=== PATIENT | female | born 1975 | race Caucasian/White ===

== ENCOUNTER 2016-08-06 22:43 | Emergency (ER) | payer BC ==
[~2016-08-06] VITALS: Ht 170.2 cm; Wt 71.4 kg
[~2016-08-06 22:43] MED LIST: CEPH500C3 PO; HYDR50TA94 PO; MEDR4PAK3 PO
[2016-08-06 22:47] VITALS: BP 128/88; PULSE 73; RESP 18; TEMP 98.8; O2SAT 98
--- NOTE | 2016-08-06 23:13 | PD ---
HPI Chief Complaint: rash Time Seen by Provider: 23:08 Travel History International Travel<30 days: No Contact w/Intl Traveler<30days: No Traveled to known affect area: No History of Present Illness HPI 41-year-old female presents to the emergency department for complaint of non- pruritic rash noted to the volar aspects of both lower forearms. Patient reports that on Tuesday she was working in her yard resting her forearms on concrete surface as she was trying to detach a broken sprinkler head and was being exposed to claims water. Patient noted a small abrasion to her right palm shows stopped exposing her skin and wound to the contaminated water and immediately washed her hands and forearms vigorously. Patient states on she noted a non-pruritic erythematous pinpoint rash to the volar aspect of both distal forearms. Patient states areas did not have associated vesicles pustules there were no petechia or purpura areas were not confluent. Erythematous base is noted. No itching was noted. No ascending erythema. Areas of the dorsum of the forearm was. In this area was not in contact with the water or the concrete surface she was resting her forearms on. Patient did not have any ascending erythema or axillary lymphadenopathy no fever or chills or other complaints. Small area of skin tear and the palmar aspect of the right hand is clean and patient has not reported any drainage or redness or tenderness at the site. Patient's tetanus status greater than 15 years. Patient denies just ended normal menses on Tuesday. [facility] Past Medical History Narrative Medical Sensitive skin/dermatographia; no tobacco use; nursing notes reviewed Diminished Hearing: No Immunizations Current: No Social History Alcohol Use: No Tobacco Use: No Substance Use: No Allergies-Medications (Allergen,Severity, Reaction): Coded Allergies: Clindamycin (Verified Allergy, Severe, Diarrhea, 09/09/13) Doxycycline (Verified Allergy, Severe, Nausea/Vomiting, 09/09/13) Sulfa (Verified Allergy, Severe, Rash, 09/09/13) Reported Meds & Prescriptions Reported Meds & Active Scripts Active Keflex (Cephalexin Monohydrate) 500 Mg Cap 500 Mg PO QID Atarax (Hydroxyzine HCl) 50 Mg Tab 50 Mg PO Q6 PRN Medrol Dosepak (Methylprednisolone) 4 Mg [place] 4 Mg PO DIRECTED TAKE DIRECTED Review of Systems Except as stated in HPI: all other systems reviewed are Neg General / Constitutional: No: Fever, Chills Cardiovascular: No: Chest Pain or Discomfort Respiratory: No: Shortness of Breath Gastrointestinal: No: Abdominal Pain Genitourinary: No: Flank Pain Musculoskeletal: No: Weakness Skin: Positive Rash, No Itching, No Hives Neurologic: No: Weakness Psychiatric: No: Anxiety Hematologic/Lymphatic: No: Lymph Node Enlargement Physical Exam Narrative GENERAL: Well-developed well-nourished female in no acute distress no respiratory distress SKIN: Warm and dry. Distal volar aspect bilateral forearms area of sparingly dispersed erythematous papules without vesicles pustules or purpura; no involvement of the dorsum of the forearms or the hands sparing the palms and digits. Capillary refill is brisk and less than 2 seconds on the ulnar aspect of the right handed with small subcentimeter laceration without drainage tenderness redness or increased warmth. EYES: No scleral icterus. No injection or drainage. NECK: Supple, trachea midline. No JVD or lymphadenopathy. CARDIOVASCULAR: Regular rate and rhythm without murmurs, gallops, or rubs. RESPIRATORY: Breath sounds equal bilaterally. No accessory muscle use. MUSCULOSKELETAL: No cyanosis, or edema. Data Data Last Documented VS Vital Signs Date Time Temp Pulse Resp B/P Pulse Ox O2 Delivery O2 Flow Rate FiO2 08/06/16 23:19 78 16 132/88 99 Room Air 08/06/16 23:15 98.8 Orders Tetanus/Diphtheria Tox Adult (Tetanus/Di (08/06/16 23:15) MDM Medical Decision Making Medical Screen Exam Complete: Yes Emergency Medical Condition: Yes Medical Record Reviewed: Yes Differential Diagnosis Contact dermatitis, allergic dermatitis, folliculitis Narrative Course Tetanus status updated; patient presents with picture of rash as it appeared yesterday compared to exam today which shows marked improvement no further medications other than an [id number] antihistamine such as Benadryl or Zyrtec as recommended Patient is stable for outpatient management Diagnosis Primary Impression: Contact dermatitis Qualified Code: L24.9 - Irritant contact dermatitis, unspecified trigger Referrals: Primary Care Physician 3 days Additional Instructions: May use [id number] Benadryl per package directions or Zyrtec for rash Cleanse area with dilute soap and rinsed well Return to the emergency department for any concerns or change in condition Disposition: 01 DISCHARGE HOME Condition: Stable Lorelei Jewell MD Aug 06, 2016 23:12
[2016-08-06 23:15] VITALS: BP 128/88; PULSE 73; RESP 18; TEMP 98.8; O2SAT 98
[2016-08-06] MEDS ORDERED: TETANUS/DIPHTHERIA TOXOID ADULT 0.5 ML VIAL IM ONE (23:15)
[2016-08-06 23:19] VITALS: BP 132/88; PULSE 78; RESP 16; O2SAT 99
== END 2016-08-07 00:24 | disposition home or self-care (01) ==
LOC: PHED 22:43
DX: L25.8 Unspecified contact dermatitis due to other agents (principal); Z23 Encounter for immunization
CPT/HCPCS: 90471; 90714